=== PATIENT | male | born 1950 | race Caucasian/White ===

== ENCOUNTER → 2024-03-13 10:28 | Outpatient (BNVA) | payer MEDICARE, BC, SELFPAY | PROVIDERS: PCP Family Medicine; Referring Provider Family Medicine; Visit Provider Psychiatry & Neurology Neurology | DX: F80.81 Childhood onset fluency disorder (principal); R25.1 Tremor, unspecified; G31.9 Degenerative disease of nervous system, unspecified; E55.9 Vitamin D deficiency, unspecified; I10 Essential (primary) hypertension; F03.90 Unspecified dementia, unspecified severity, without behavioral disturbance, psychotic disturbance, mood disturbance, and anxiety; M06.9 Rheumatoid arthritis, unspecified | CPT/HCPCS: 36415; 80053; 80061; 81241; 82306; 82525; 82542; 82607; 82746; 83090; 83735; 83921; 84425; 84439; 84443; 84481; 85025; 85300; 85613; 85651; 85730; 86140; 86146; 86147; 86160; 86162; 86235; 86255; 86376; 86431; 99203 ==

== ENCOUNTER → 2024-07-12 06:28 | Outpatient (BNVA) | payer MEDICARE, BC, SELFPAY | PROVIDERS: PCP Family Medicine; Referring Provider Psychiatry & Neurology Neurology; Visit Provider Psychiatry & Neurology Neurology | DX: F80.81 Childhood onset fluency disorder (principal); R25.1 Tremor, unspecified; G31.9 Degenerative disease of nervous system, unspecified | CPT/HCPCS: 95816; 95819 ==